=== PATIENT | male | born 1945 | race Caucasian/White ===

== ENCOUNTER 2022-04-07 09:58 | Outpatient (CLI) | payer MEDICARE, BC ==
[2022-04-07 11:07] LABS: #Basophils 0.1 10x3/uL (0.0-0.2); #Eosinphils 0.4 10x3/uL (0.0-0.5); #Monocytes 1.3 10x3/uL (0.0-1.1); #Neutrophils 12.9 10x3/uL (1.5-8.4); %Basophils 0.6 % (0.0-2.0); %Eosinophils 2.6 % (0.0-6.0); %Lymphocytes 7.4 % (18.0-47.0); %Monocytes 7.9 % (0.0-10.0); Hemoglobin 14.5 g/dL (13.5-17.5); Mean Corpuscular HGB CONC 34.1 g/dL (32.0-36.0); Mean Corpuscular Hemoglobin 32.7 pg (27.0-33.0); Mean Corpuscular Volume 95.7 fl (81.2-95.1); Mean Platelet Volume 10.6 fl (7.4-10.4); Platelet Count 550 10x3/uL (150-450); RBC Distribution Width 14.6 % (11.5-14.5); Red Blood Cell (RBC) Count 4.44 10x6/uL (4.32-5.72); White Blood Cell (WBC) Count 15.9 10x3/uL (3.5-10.5)
[2022-04-07 11:27] LABS: INR-International Normal Ratio 1.1; Prothrombin Time 11.7 sec (9.5-12.1)
[2022-04-07 11:37] LABS: Anion Gap 14 mmol/L (10-20); BUN (Urea Nitrogen) 23 mg/dL (8.4-25.7); Calc. Creatinine Clearance 0 mL/min (70-130); Calcium 9.9 mg/dL (7.8-10.44); Carbon Dioxide 25 mmol/L (23-31); Chloride 105 mmol/L (98-107); Estimated GFR 79; Glucose 111 mg/dL (83-110); Potassium 4.5 mmol/L (3.5-5.1); Sodium 139 mmol/L (136-145)
== END 2022-04-07 09:59 | disposition home or self-care (01) ==
LOC: LABBT 09:58
PROVIDERS: ATTEND Orthopaedic Surgery
DX: Z01.818 Encounter for other preprocedural examination (principal); M17.12 Unilateral primary osteoarthritis, left knee
CPT/HCPCS: 80048; 85025; 85610; 87081; 93005; 93010

== ENCOUNTER 2022-04-11 05:42 | Inpatient (IN) | payer MEDICARE, BC ==
[2022-04-11] MEDS ORDERED: Vancomycin 1 GM/200 ML (FROZEN) BAG ONE (06:20)
[2022-04-11] MEDS ORDERED: Sodium Chloride 0.9% 100 ML ONE ×3 (06:20→14:32)
[2022-04-11] MEDS ORDERED: Tranexamic Acid 1,000 MG/10 ML VIAL ONE (06:20)
[2022-04-11] MEDS ORDERED: Fentanyl 250 MCG/5 ML VIAL ONE (06:21)
[2022-04-11] MEDS ORDERED: Bupivacaine PF 0.5% 30 ML VIAL ONE ×2 (06:26→06:34)
[2022-04-11] MEDS ORDERED: Midazolam HCl 2 mg/2 ml Vial ONE (06:32)
[2022-04-11] MEDS ORDERED: Fentanyl 100 MCG/2 ML VIAL ONE ×4 (06:32→12:51)
[2022-04-11] MEDS ORDERED: EPINEPHrine 1 MG/ML AMP ONE (06:34)
[2022-04-11] MEDS ORDERED: Lidocaine 1% (PF) 30 ML VIAL ONE (06:34)
[2022-04-11] MEDS ORDERED: Promethazine HCl 25 MG/ML VIAL IM PRN ×3 (06:56→08:59)
[2022-04-11] MEDS ORDERED: diphenhydrAMINE 25 MG CAP PO PRN (06:56)
[2022-04-11] MEDS ORDERED: CEFAZOLIN 2 GM VIAL ONE ×2 (06:56→14:32)
[2022-04-11] MEDS ORDERED: Ondansetron PF 4 MG/2 ML Vial IVP PRN ×2 (06:56→07:30)
[2022-04-11] MEDS ORDERED: Zolpidem Tartrate 5 MG TAB PO PRN ×2 (06:56→07:30)
[2022-04-11] MEDS ORDERED: HYDROcodone/Acetaminophen 10/325 mg Tablet PO PRN ×2 (06:56)
[2022-04-11] MEDS ORDERED: Acetaminophen 325 MG TAB PO PRN (06:56)
[2022-04-11] MEDS ORDERED: Lidocaine 1% PF 5 ML VIAL ONE (07:18)
[2022-04-11] MEDS ORDERED: PROPOFOL 200 MG/20 ML VIAL ONE (07:18)
[2022-04-11] MEDS ORDERED: PHENYLEPHRINE-NS 100 MCG/ML 10 ML SYRINGE ONE (07:18)
[2022-04-11] MEDS ORDERED: Metoclopramide HCl 10 MG/2 ML VIAL ONE (07:18)
[2022-04-11] MEDS ORDERED: Bupivacaine HCl 0.5%/Epinephrine 1:200,000/PF 30 ml Vial ONE (07:18)
[2022-04-11] MEDS ORDERED: Ondansetron PF 4 MG/2 ML Vial ONE (07:18)
[2022-04-11] MEDS ORDERED: Fentanyl 100 MCG/2 ML VIAL SLOW IVP PRN (07:26)
[2022-04-11] MEDS ORDERED: traMADol HCl 50 MG TAB PO PRN (07:30)
[2022-04-11] MEDS ORDERED: Ropivacaine 0.2% 550 ML 550 ML NERVE BLCK SCH (07:30)
[2022-04-11 08:08] LABS: SARS-CoV-2 NAA Rapid Test Not Detected (NotDetected)
[2022-04-11] MEDS ORDERED: Meperidine HCl/PF 25 MG/ML VIAL SLOW IVP PRN (08:59)
[2022-04-11] MEDS ORDERED: Ondansetron HCl/PF 4 MG/2 ML Vial IVP PRN (08:59)
[2022-04-11] MEDS ORDERED: Promethazine HCl 25 MG/ML VIAL IVPB PRN (08:59)
[2022-04-11] MEDS ORDERED: PACU-Morphine 4MG/ML VIAL SLOW IVP PRN (08:59)
[2022-04-11] MEDS ORDERED: Non-Formulary Item 1 EACH (Multivitamin [Multivitamin] 1 EACH Tablet) PO SCH (09:00)
[2022-04-11] MEDS ORDERED: Morphine 4 MG/ML VIAL ONE (09:06)
[2022-04-11] MEDS ORDERED: Ketorolac Tromethamine 30 MG/ML VIAL IVP SCH (14:00)
[2022-04-11] MEDS: CEFAZOLIN 2 GM in Sodium Chloride 0.9% 100 ML IVPB SCH ×2 (14:34→23:24)
[2022-04-11] MEDS: Ketorolac Tromethamine 30 MG/ML VIAL IVP SCH ×3 (14:36→23:24)
[2022-04-11] MEDS ORDERED: Ketorolac Tromethamine 30 MG/ML VIAL ONE (14:38)
[2022-04-11 16:26] VITALS: BMI 29.2
[2022-04-11] MEDS: Sodium Chloride 0.9% 1,000 ML IV SCH ×2 (16:51→16:52)
[2022-04-11] MEDS: Amlodipine 5 MG TAB PO SCH (16:51)
[2022-04-11] MEDS: Aspirin 81 mg Enteric Coated Tablet PO SCH ×2 (16:51→20:50)
[2022-04-11] MEDS: Losartan 25 MG TAB PO SCH ×2 (16:52→20:50)
[2022-04-11] MEDS: Loratadine 10 MG TAB PO SCH (16:52)
[2022-04-11] MEDS: traMADol HCl 50 MG TAB PO PRN (20:50)
[2022-04-11] MEDS: Famotidine 20 MG TAB PO SCH (20:50)
[2022-04-12] MEDS: Sodium Chloride 0.9% 1,000 ML IV SCH ×3 (04:16→22:34)
[2022-04-12 06:38] LABS: Hemoglobin 12.4 g/dL (14.0-18.0); Mean Corpuscular HGB CONC 33.3 g/dL (32.0-36.0); Mean Corpuscular Hemoglobin 33.8 pg (27.0-31.0); Mean Platelet Volume 8.1 fL (7.4-10.4); Platelet Count 429 10x3/uL (130-400); RBC Distribution Width 13.6 % (11.5-14.5); Red Blood Cell (RBC) Count 3.67 mill/uL (4.70-6.10)
[2022-04-12] MEDS: Ketorolac Tromethamine 30 MG/ML VIAL IVP SCH ×3 (06:41→17:14)
[2022-04-12] MEDS: traMADol HCl 50 MG TAB PO PRN ×2 (06:50→21:25)
[2022-04-12] MEDS: Multivitamin W/ Minerals 1 TAB PO SCH (08:28)
[2022-04-12] MEDS: Losartan 25 MG TAB PO SCH ×2 (08:28→21:23)
[2022-04-12] MEDS: Senokot S 8.6-50 MG TAB PO SCH ×2 (08:28→21:23)
[2022-04-12] MEDS: Aspirin 81 mg Enteric Coated Tablet PO SCH ×2 (08:28→21:23)
[2022-04-12] MEDS: Ferrous Gluconate 324 MG TAB PO SCH ×2 (08:28→16:05)
[2022-04-12] MEDS: Loratadine 10 MG TAB PO SCH (08:29)
[2022-04-12] MEDS: Amlodipine 5 MG TAB PO SCH (08:29)
[2022-04-12] MEDS: HYDROcodone/Acetaminophen 10/325 mg Tablet PO PRN ×2 (08:29→16:05)
[2022-04-12] MEDS: Famotidine 20 MG TAB PO SCH (21:23)
[2022-04-13] MEDS: Ketorolac Tromethamine 30 MG/ML VIAL IVP SCH ×2 (00:14→05:10)
[2022-04-13] MEDS: traMADol HCl 50 MG TAB PO PRN ×2 (03:36→10:36)
[2022-04-13] MEDS ORDERED: Ipratropium/Albuterol 3 ML NEB NEB SCH (09:30)
[2022-04-13] MEDS: Losartan 25 MG TAB PO SCH ×2 (10:33→20:03)
[2022-04-13] MEDS: Multivitamin W/ Minerals 1 TAB PO SCH (10:34)
[2022-04-13] MEDS: Aspirin 81 mg Enteric Coated Tablet PO SCH ×2 (10:34→20:03)
[2022-04-13] MEDS: Senokot S 8.6-50 MG TAB PO SCH ×2 (10:34→20:03)
[2022-04-13] MEDS: Amlodipine 5 MG TAB PO SCH (10:34)
[2022-04-13] MEDS: Loratadine 10 MG TAB PO SCH (10:34)
[2022-04-13] MEDS: Ferrous Gluconate 324 MG TAB PO SCH ×2 (10:39→18:38)
[2022-04-13] MEDS: Sodium Chloride 0.9% 1,000 ML IV SCH ×2 (11:21→22:30)
[2022-04-13] MEDS ORDERED: Iopamidol-370 76% 500 ML 1 ML ONE (14:19)
[2022-04-13] MEDS: HYDROcodone/Acetaminophen 10/325 mg Tablet PO PRN (15:28)
[2022-04-13] MEDS ORDERED: Ipratropium/Albuterol 3 ML NEB NEB PRN (17:21)
[2022-04-13 18:06] LABS: #Basophils 0.1 thou/uL (0.0-0.2); #Eosinphils 0.4 thou/uL (0.0-0.7); #Lymphocytes 1.2 thou/uL (1.20-3.40); #Monocytes 2.1 thou/uL (0.11-0.59); #Neutrophils 15.9 thou/uL (1.40-6.50); %Basophils 0.3 % (0.0-1.0); %Eosinophils 2.2 % (0.0-10.0); %Lymphocytes 6.3 % (21.0-51.0); %Monocytes 10.4 % (0.0-10.0); %Neutrophils 80.8 % (42.0-75.0); Hemoglobin 11.7 g/dL (14.0-18.0); Mean Corpuscular HGB CONC 32.7 g/dL (32.0-36.0); Mean Corpuscular Hemoglobin 33.5 pg (27.0-31.0); Mean Platelet Volume 8.3 fL (7.4-10.4); Platelet Count 474 10x3/uL (130-400); RBC Distribution Width 13.9 % (11.5-14.5); Red Blood Cell (RBC) Count 3.49 mill/uL (4.70-6.10); White Blood Cell (WBC) Count 19.7 10x3/uL (4.8-10.8)
[2022-04-13 18:23] LABS: Anion Gap 15 mmol/L (10-20); BUN (Urea Nitrogen) 28 mg/dL (8.4-25.7); Calc. Creatinine Clearance 57 mL/min (70-130); Calcium 9.6 mg/dL (7.8-10.44); Carbon Dioxide 23 mmol/L (23-31); Chloride 103 mmol/L (98-107); Estimated GFR 64; Glucose 113 mg/dL (83-110); Potassium 4.5 mmol/L (3.5-5.1); Sodium 136 mmol/L (136-145)
[2022-04-13] MEDS: Famotidine 20 MG TAB PO SCH (20:04)
[2022-04-13] MEDS: cefTRIAXone\\ROCEPHIN 2 GM in Sodium Chloride 0.9% 100 ML IVPB SCH (21:35)
[2022-04-13] MEDS: Azithromycin 500 MG in Sodium Chloride 0.9% 250 ML 250 ML IVPB SCH (22:10)
[2022-04-14] MEDS: Sodium Chloride 0.9% 1,000 ML IV SCH ×2 (04:24→18:51)
[2022-04-14 08:35] LABS: #Eosinphils 0.3 thou/uL (0.0-0.7); #Lymphocytes 0.8 thou/uL (1.20-3.40); #Monocytes 1.6 thou/uL (0.11-0.59); #Neutrophils 13.4 thou/uL (1.40-6.50); %Basophils 0.3 % (0.0-1.0); %Eosinophils 2.1 % (0.0-10.0); %Lymphocytes 5.1 % (21.0-51.0); %Monocytes 9.6 % (0.0-10.0); %Neutrophils 82.9 % (42.0-75.0); Hemoglobin 11.2 g/dL (14.0-18.0); Mean Corpuscular HGB CONC 32.8 g/dL (32.0-36.0); Mean Platelet Volume 8.1 fL (7.4-10.4); Platelet Count 460 10x3/uL (130-400); RBC Distribution Width 13.8 % (11.5-14.5); Red Blood Cell (RBC) Count 3.41 mill/uL (4.70-6.10); White Blood Cell (WBC) Count 16.2 10x3/uL (4.8-10.8)
[2022-04-14 08:48] LABS: Anion Gap 13 mmol/L (10-20); BUN (Urea Nitrogen) 19 mg/dL (8.4-25.7); Calc. Creatinine Clearance 76 mL/min (70-130); Calcium 9.2 mg/dL (7.8-10.44); Carbon Dioxide 23 mmol/L (23-31); Chloride 105 mmol/L (98-107); Estimated GFR 88; Glucose 93 mg/dL (83-110); Potassium 3.8 mmol/L (3.5-5.1); Sodium 137 mmol/L (136-145)
[2022-04-14] MEDS: HYDROcodone/Acetaminophen 10/325 mg Tablet PO PRN (10:42)
[2022-04-14] MEDS: Aspirin 81 mg Enteric Coated Tablet PO SCH ×2 (10:43→20:46)
[2022-04-14] MEDS: Multivitamin W/ Minerals 1 TAB PO SCH (10:43)
[2022-04-14] MEDS: Losartan 25 MG TAB PO SCH ×2 (10:43→20:47)
[2022-04-14] MEDS: Loratadine 10 MG TAB PO SCH (10:43)
[2022-04-14] MEDS: Amlodipine 5 MG TAB PO SCH (10:43)
[2022-04-14] MEDS: Senokot S 8.6-50 MG TAB PO SCH ×2 (10:43→20:48)
[2022-04-14] MEDS: Ferrous Gluconate 324 MG TAB PO SCH ×2 (10:48→18:30)
[2022-04-14] MEDS: cefTRIAXone\\ROCEPHIN 2 GM in Sodium Chloride 0.9% 100 ML IVPB SCH (20:46)
[2022-04-14] MEDS: Famotidine 20 MG TAB PO SCH (20:46)
[2022-04-14] MEDS: Azithromycin 500 MG in Sodium Chloride 0.9% 250 ML 250 ML IVPB SCH (21:37)
[2022-04-15] MEDS: Sodium Chloride 0.9% 1,000 ML IV SCH ×3 (04:15→21:00)
[2022-04-15] MEDS: HYDROcodone/Acetaminophen 10/325 mg Tablet PO PRN ×3 (05:50→21:10)
[2022-04-15] MEDS: Losartan 25 MG TAB PO SCH ×2 (08:56→21:06)
[2022-04-15] MEDS: Amlodipine 5 MG TAB PO SCH (08:57)
[2022-04-15] MEDS: Aspirin 81 mg Enteric Coated Tablet PO SCH ×2 (08:57→21:06)
[2022-04-15] MEDS: Loratadine 10 MG TAB PO SCH (08:57)
[2022-04-15] MEDS: Senokot S 8.6-50 MG TAB PO SCH ×2 (08:57→21:06)
[2022-04-15] MEDS: Ferrous Gluconate 324 MG TAB PO SCH ×2 (08:57→16:39)
[2022-04-15] MEDS: Multivitamin W/ Minerals 1 TAB PO SCH (08:57)
[2022-04-15] MEDS: cefTRIAXone\\ROCEPHIN 2 GM in Sodium Chloride 0.9% 100 ML IVPB SCH (21:05)
[2022-04-15] MEDS: Famotidine 20 MG TAB PO SCH (21:10)
[2022-04-15] MEDS: Azithromycin 500 MG in Sodium Chloride 0.9% 250 ML 250 ML IVPB SCH (22:46)
[2022-04-16 06:43] LABS: #Eosinphils 0.6 thou/uL (0.0-0.7); #Lymphocytes 0.8 thou/uL (1.20-3.40); #Monocytes 1.5 thou/uL (0.11-0.59); #Neutrophils 9.1 thou/uL (1.40-6.50); %Basophils 0.3 % (0.0-1.0); %Eosinophils 5.1 % (0.0-10.0); %Lymphocytes 6.8 % (21.0-51.0); %Monocytes 12.5 % (0.0-10.0); %Neutrophils 75.3 % (42.0-75.0); Hemoglobin 10.7 g/dL (14.0-18.0); Mean Corpuscular Hemoglobin 33.3 pg (27.0-31.0); Mean Platelet Volume 8.4 fL (7.4-10.4); Platelet Count 486 10x3/uL (130-400); RBC Distribution Width 13.6 % (11.5-14.5); Red Blood Cell (RBC) Count 3.22 mill/uL (4.70-6.10); White Blood Cell (WBC) Count 12.1 10x3/uL (4.8-10.8)
[2022-04-16] MEDS: Sodium Chloride 0.9% 1,000 ML IV SCH ×2 (06:48→16:23)
[2022-04-16 07:10] LABS: ALT (SGPT) 31 U/L (8-55); AST (SGOT) 48 U/L (5-34); Albumin 3.7 g/dL (3.4-4.8); Alkaline Phosphatase 63 U/L (40-110); Anion Gap 13 mmol/L (10-20); BUN (Urea Nitrogen) 22 mg/dL (8.4-25.7); Bilirubin, Total 0.8 mg/dL (0.2-1.2); Calc. Creatinine Clearance 75 mL/min (70-130); Carbon Dioxide 25 mmol/L (23-31); Chloride 104 mmol/L (98-107); Estimated GFR 88; Globulin 2.7 g/dL (2.4-3.5); Glucose 92 mg/dL (83-110); Magnesium 2.2 mg/dL (1.6-2.6); Phosphorus 3.5 mg/dL (2.3-4.7); Protein, Total 6.4 g/dL (5.8-8.1); Sodium 138 mmol/L (136-145)
[2022-04-16] MEDS: HYDROcodone/Acetaminophen 10/325 mg Tablet PO PRN ×2 (08:13→20:03)
[2022-04-16] MEDS: Losartan 25 MG TAB PO SCH ×2 (08:14→20:02)
[2022-04-16] MEDS: Aspirin 81 mg Enteric Coated Tablet PO SCH ×2 (08:14→20:03)
[2022-04-16] MEDS: Senokot S 8.6-50 MG TAB PO SCH ×2 (08:14→20:03)
[2022-04-16] MEDS: Amlodipine 5 MG TAB PO SCH (08:14)
[2022-04-16] MEDS: Ferrous Gluconate 324 MG TAB PO SCH ×2 (08:15→16:26)
[2022-04-16] MEDS: Multivitamin W/ Minerals 1 TAB PO SCH (08:15)
[2022-04-16] MEDS: Loratadine 10 MG TAB PO SCH (08:15)
[2022-04-16] MEDS: cefTRIAXone\\ROCEPHIN 2 GM in Sodium Chloride 0.9% 100 ML IVPB SCH (20:00)
[2022-04-16] MEDS: Famotidine 20 MG TAB PO SCH (20:02)
[2022-04-16] MEDS: Azithromycin 500 MG in Sodium Chloride 0.9% 250 ML 250 ML IVPB SCH (21:53)
[2022-04-17] MEDS: HYDROcodone/Acetaminophen 10/325 mg Tablet PO PRN ×3 (00:05→13:52)
[2022-04-17] MEDS: Sodium Chloride 0.9% 1,000 ML IV SCH ×2 (03:00→09:24)
[2022-04-17 07:02] LABS: #Eosinphils 0.7 thou/uL (0.0-0.7); #Lymphocytes 0.8 thou/uL (1.20-3.40); #Monocytes 1.3 thou/uL (0.11-0.59); #Neutrophils 8.5 thou/uL (1.40-6.50); %Basophils 0.1 % (0.0-1.0); %Lymphocytes 7.1 % (21.0-51.0); %Monocytes 11.6 % (0.0-10.0); %Neutrophils 75.3 % (42.0-75.0); Hemoglobin 10.3 g/dL (14.0-18.0); Mean Corpuscular HGB CONC 34.8 g/dL (32.0-36.0); Mean Corpuscular Hemoglobin 35.2 pg (27.0-31.0); Mean Platelet Volume 8.2 fL (7.4-10.4); Platelet Count 488 10x3/uL (130-400); RBC Distribution Width 13.7 % (11.5-14.5); Red Blood Cell (RBC) Count 2.93 mill/uL (4.70-6.10); White Blood Cell (WBC) Count 11.3 10x3/uL (4.8-10.8)
[2022-04-17 07:22] LABS: Anion Gap 10 mmol/L (10-20); BUN (Urea Nitrogen) 18 mg/dL (8.4-25.7); Calc. Creatinine Clearance 80 mL/min (70-130); Calcium 8.5 mg/dL (7.8-10.44); Carbon Dioxide 26 mmol/L (23-31); Chloride 106 mmol/L (98-107); Estimated GFR 90; Glucose 89 mg/dL (83-110); Sodium 138 mmol/L (136-145)
[2022-04-17] MEDS: Amlodipine 5 MG TAB PO SCH (08:03)
[2022-04-17] MEDS: Aspirin 81 mg Enteric Coated Tablet PO SCH (08:03)
[2022-04-17] MEDS: Losartan 25 MG TAB PO SCH (08:04)
[2022-04-17] MEDS: Senokot S 8.6-50 MG TAB PO SCH (08:04)
[2022-04-17] MEDS: Loratadine 10 MG TAB PO SCH (08:04)
[2022-04-17] MEDS: Ferrous Gluconate 324 MG TAB PO SCH (08:04)
[2022-04-17] MEDS: Multivitamin W/ Minerals 1 TAB PO SCH (08:05)
[2022-04-17 12:22] VITALS: BP 117/63; TEMP 98.4
[2022-04-17] MEDS ORDERED: Apixaban 5 MG TAB PO SCH (21:00)
[2022-04-24] MEDS ORDERED: Apixaban 5 MG TAB PO SCH (21:00)
== END 2022-04-17 15:38 | disposition home health service (06) | DRG 981 ==
LOC: SDC 05:42 → SJJU 15:37 → OBSVTOIN 04-13 15:11
PROVIDERS: ADMIT Orthopaedic Surgery; ATTEND Internal Medicine
PROC: 0SRD0J9 Replacement of Left Knee Joint with Synthetic Substitute, Cemented, Open Approach (ICD-10-PCS; principal; 2022-04-11)
DX: J95.89 Other postprocedural complications and disorders of respiratory system, not elsewhere classified (principal); I26.99 Other pulmonary embolism without acute cor pulmonale; J18.9 Pneumonia, unspecified organism; J96.01 Acute respiratory failure with hypoxia; T81.718A Complication of other artery following a procedure, not elsewhere classified, initial encounter; M17.12 Unilateral primary osteoarthritis, left knee; I10 Essential (primary) hypertension; M17.0 Bilateral primary osteoarthritis of knee; J30.2 Other seasonal allergic rhinitis; C61 Malignant neoplasm of prostate; I08.3 Combined rheumatic disorders of mitral, aortic and tricuspid valves; Y83.8 Other surgical procedures as the cause of abnormal reaction of the patient, or of later complication, without mention of misadventure at the time of the procedure; Z88.2 Allergy status to sulfonamides; Z79.899 Other long term (current) drug therapy
CPT/HCPCS: 36415; 71275; 80048; 80053; 83735; 84100; 85025; 85027; 87040; 93306; 94640; 96374; 96375; 96376; A4306; C1713; C1776; G0378; J0171; J0456; J0696; J1650; J1885; J2001; J2250; J2270; J2405; J2704; J2765; J2795; J3010; J3370-JW; J3490; J7050; J7620; Q9967; S0020; U0002

== ENCOUNTER 2022-04-26 15:44 | Outpatient (CLI) | payer MEDICARE, BC ==
[2022-04-26 16:59] LABS: #Basophils 0.1 10x3/uL (0.0-0.2); #Eosinphils 0.5 10x3/uL (0.0-0.5); #Monocytes 1.4 10x3/uL (0.0-1.1); #Neutrophils 13.9 10x3/uL (1.5-8.4); %Basophils 0.8 % (0.0-2.0); %Lymphocytes 7.9 % (18.0-47.0); %Monocytes 8.1 % (0.0-10.0); %Neutrophils 78.6 % (40.0-75.0); Hemoglobin 10.1 g/dL (13.5-17.5); Mean Corpuscular HGB CONC 32.4 g/dL (32.0-36.0); Mean Corpuscular Hemoglobin 32.2 pg (27.0-33.0); Mean Corpuscular Volume 99.4 fl (81.2-95.1); Mean Platelet Volume 10.3 fl (7.4-10.4); Platelet Count 758 10x3/uL (150-450); RBC Distribution Width 16.2 % (11.5-14.5); Red Blood Cell (RBC) Count 3.14 10x6/uL (4.32-5.72); White Blood Cell (WBC) Count 17.7 10x3/uL (3.5-10.5)
[2022-04-26 17:00] LABS: MDiff Complete? YES
[2022-04-26 17:19] LABS: Band 3 % (5-11); Eosinophils 3 % (0-10); Lymphocytes 8 % (21-51); Monocytes 9 % (0-10); Neutrophil 75 % (42-75)
[2022-04-26 17:20] LABS: Anion Gap 14 mmol/L (10-20); BUN (Urea Nitrogen) 20 mg/dL (8.4-25.7); Calc. Creatinine Clearance 0 mL/min (70-130); Calcium 9.2 mg/dL (7.8-10.44); Carbon Dioxide 24 mmol/L (23-31); Chloride 106 mmol/L (98-107); Estimated GFR 77; Glucose 98 mg/dL (83-110); Platelet Morphology Comment Appears Increased; Potassium 5.8 mmol/L (3.5-5.1); Sodium 138 mmol/L (136-145)
[2022-04-26 17:21] LABS: Anisocytosis SLIGHT = 6-15 cells (100X) (0-5/hpf); Dohle Bodies SLIGHT; Toxic Granulation SLIGHT; Vacuoles SLIGHT
[2022-04-26 17:22] LABS: Hypochromia SLIGHT = 6-15 cells (100X) (0-5/hpf); Macrocytosis SLIGHT = 6-15 cells (100X) (0-5/hpf); Microcytosis SLIGHT = 6-15 cells (100X) (0-5/hpf); Polychromasia SLIGHT = 2-3 cells (100X) (0-2/hpf); Stomatocytes SLIGHT = 2-5 cells (100X) (0-1/hpf)
== END 2022-04-26 15:45 | disposition home or self-care (01) ==
LOC: LABBT 15:44
PROVIDERS: ATTEND Orthopaedic Surgery
DX: Z01.812 Encounter for preprocedural laboratory examination (principal); S81.002A Unspecified open wound, left knee, initial encounter
CPT/HCPCS: 80048; 85025

== ENCOUNTER → 2022-05-09 | Day surgery (SDC) | payer MEDICARE, BC | END | disposition home or self-care (01) | LOC: SPEC 09:15 | PROVIDERS: ATTEND Family Medicine | PROC: 02HV33Z Insertion of Infusion Device into Superior Vena Cava, Percutaneous Approach (ICD-10-PCS; principal; 2022-05-09) | DX: M00.9 Pyogenic arthritis, unspecified (principal); Z88.2 Allergy status to sulfonamides | CPT/HCPCS: 36569; C1751 ==

== ENCOUNTER 2023-11-02 16:08 | Outpatient (CLI) | payer MEDICARE | END 2023-11-02 16:09 | disposition home or self-care (01) | LOC: BICRAD 16:08 | PROVIDERS: ATTEND Nurse Practitioner Family | DX: S91.302A Unspecified open wound, left foot, initial encounter (principal) ==

== ENCOUNTER 2024-03-20 15:52 | Emergency (ER) | payer MEDICARE ==
[2024-03-20 16:28] LABS: #Basophils 0.07 10x3/uL (0.0-0.2); %Basophils 0.7 % (0.0-1.0); %Eosinophils 0.5 % (0.0-10.0); %Lymphocytes 12.2 % (21.0-51.0); %Neutrophils 80.8 % (42.0-75.0); Hematocrit 36.4 % (42.0-52.0); Hemoglobin 12.5 g/dL (14.0-18.0); Mean Corpuscular HGB CONC 34.3 g/dL (32.0-36.0); Mean Corpuscular Hemoglobin 39.7 pg (27.0-31.0); Mean Corpuscular Volume 115.6 fL (78.0-98.0); Mean Platelet Volume 9.3 fL (7.4-10.4); Platelet Count 548 10x3/uL (130-400); RBC Distribution Width 14.8 % (11.5-14.5); Red Blood Cell (RBC) Count 3.15 mill/uL (4.70-6.10)
[2024-03-20 16:52] LABS: ALT (SGPT) 11 U/L (8-55); AST (SGOT) 21 U/L (5-34); Alkaline Phosphatase 96 U/L (40-110); Anion Gap 14 mmol/L (10-20); BUN (Urea Nitrogen) 17 mg/dL (8.4-25.7); Bilirubin, Total 0.4 mg/dL (0.2-1.2); Calc. Creatinine Clearance 0 mL/min (70-130); Calcium 9.8 mg/dL (7.8-10.44); Carbon Dioxide 27 mmol/L (23-31); Chloride 104 mmol/L (98-107); Estimated GFR 87; Globulin 3.3 g/dL (2.4-3.5); Glucose 150 mg/dL (83-110); Potassium 4.7 mmol/L (3.5-5.1); Protein, Total 7.3 g/dL (5.8-8.1); Sodium 140 mmol/L (136-145)
[2024-03-20 16:57] LABS: Anisocytosis SLIGHT = 6-15 cells HPF (0-5); Macrocytosis SLIGHT = 6-15 cells HPF (0-5); Platelet Adequacy Comment Platelets Increased; Polychromasia SLIGHT = 2-3 cells HPF (0-2)
== END 2024-03-20 21:03 | disposition home or self-care (01) ==
LOC: ERS 15:52
DX: L08.9 Local infection of the skin and subcutaneous tissue, unspecified (principal); I10 Essential (primary) hypertension
CPT/HCPCS: 36415; 80053; 83605; 85025; 87070; 87205; 99284

== ENCOUNTER 2024-03-24 17:06 | Inpatient (IN) | payer MEDICARE ==
[2024-03-24 18:53] LABS: %Basophils 0.7 % (0.0-1.0); %Eosinophils 0.6 % (0.0-10.0); %Monocytes 5.9 % (0.0-10.0); %Neutrophils 82.1 % (42.0-75.0); Hematocrit 37.4 % (42.0-52.0); Hemoglobin 12.5 g/dL (14.0-18.0); Mean Corpuscular HGB CONC 33.4 g/dL (32.0-36.0); Mean Corpuscular Hemoglobin 39.2 pg (27.0-31.0); Mean Corpuscular Volume 117.2 fL (78.0-98.0); Mean Platelet Volume 9.4 fL (7.4-10.4); Platelet Count 536 10x3/uL (130-400); RBC Distribution Width 14.5 % (11.5-14.5); Red Blood Cell (RBC) Count 3.19 mill/uL (4.70-6.10)
[2024-03-24 19:03] LABS: ALT (SGPT) 10 U/L (8-55); AST (SGOT) 18 U/L (5-34); Albumin 4.3 g/dL (3.4-4.8); Alkaline Phosphatase 96 U/L (40-110); Anion Gap 13 mmol/L (10-20); BUN (Urea Nitrogen) 23 mg/dL (8.4-25.7); Bilirubin, Total 0.4 mg/dL (0.2-1.2); CRP,High Sensitivity (Inhouse) 3.48 mg/dL (< or = 0.5); Calc. Creatinine Clearance 0 mL/min (70-130); Calcium 9.7 mg/dL (7.8-10.44); Carbon Dioxide 24 mmol/L (23-31); Chloride 104 mmol/L (98-107); Estimated GFR 82; Globulin 3.4 g/dL (2.4-3.5); Glucose 105 mg/dL (83-110); Potassium 4.3 mmol/L (3.5-5.1); Protein, Total 7.7 g/dL (5.8-8.1); Sodium 137 mmol/L (136-145)
[2024-03-24 19:18] LABS: Anisocytosis SLIGHT = 6-15 cells HPF (0-5); Macrocytosis MODERATE=16-30 cells HPF (0-5); Platelet Adequacy Comment Platelets Increased; Polychromasia SLIGHT = 2-3 cells HPF (0-2)
[2024-03-24] MEDS ORDERED: Ondansetron ODT 4 MG TAB PO PRN (21:00)
[2024-03-24] MEDS ORDERED: Senokot S 8.6-50 MG TAB PO PRN (21:00)
[2024-03-24] MEDS ORDERED: Sodium Chloride 0.9% 100 ML ONE (21:46)
[2024-03-24] MEDS ORDERED: Cefepime 2 GM VIAL ONE (21:46)
[2024-03-24 23:22] VITALS: BMI 21.1
[2024-03-25] MEDS: Acetaminophen 325 MG TAB PO PRN (00:44)
[2024-03-25] MEDS: Piperacillin/Tazobactam 3.375 GM in Sodium Chloride 0.9% 100 ML IVPB SCH ×2 (01:00→08:27)
[2024-03-25 06:18] LABS: #Basophils 0.07 10x3/uL (0.0-0.2); %Basophils 0.7 % (0.0-1.0); %Eosinophils 0.8 % (0.0-10.0); %Lymphocytes 7.9 % (21.0-51.0); %Monocytes 5.6 % (0.0-10.0); %Neutrophils 84.3 % (42.0-75.0); Hematocrit 32.8 % (42.0-52.0); Hemoglobin 11.2 g/dL (14.0-18.0); Mean Corpuscular HGB CONC 34.1 g/dL (32.0-36.0); Mean Corpuscular Hemoglobin 39.2 pg (27.0-31.0); Mean Corpuscular Volume 114.7 fL (78.0-98.0); Mean Platelet Volume 9.4 fL (7.4-10.4); Platelet Count 435 10x3/uL (130-400); Red Blood Cell (RBC) Count 2.86 mill/uL (4.70-6.10)
[2024-03-25 06:22] LABS: Hemoglobin A1c 4.8 % (4.0-6.0)
[2024-03-25 06:42] LABS: ALT (SGPT) 10 U/L (8-55); AST (SGOT) 16 U/L (5-34); Albumin 3.4 g/dL (3.4-4.8); Alkaline Phosphatase 77 U/L (40-110); Anion Gap 13 mmol/L (10-20); BUN (Urea Nitrogen) 21 mg/dL (8.4-25.7); Bilirubin, Total 0.7 mg/dL (0.2-1.2); Calc. Creatinine Clearance 62 mL/min (70-130); Carbon Dioxide 22 mmol/L (23-31); Chloride 107 mmol/L (98-107); Cholesterol 107 mg/dl (< 200 Desired); Estimated GFR 84; Globulin 2.6 g/dL (2.4-3.5); Glucose 90 mg/dL (83-110); HDL Cholesterol 36 mg/dL (>60 Neg Risk); LDL Cholesterol, Calculated 59 mg/dL; Potassium 3.8 mmol/L (3.5-5.1); Sodium 138 mmol/L (136-145); Triglycerides 62 mg/dL (Less than 150)
[2024-03-25] MEDS ORDERED: Piperacillin/Tazobactam 3.375 GM in Sodium Chloride 0.9% 100 ML IVPB SCH (08:00)
[2024-03-25] MEDS: Multivitamin W/ Minerals 1 TAB PO SCH (08:26)
[2024-03-25] MEDS: Apixaban 5 MG TAB PO SCH (08:26)
[2024-03-25] MEDS: Amlodipine 5 MG TAB PO SCH (08:26)
[2024-03-25] MEDS: Losartan 25 MG TAB PO SCH (08:26)
[2024-03-25] MEDS: Docusate 100 MG CAP PO SCH (08:26)
[2024-03-25] MEDS: Hydroxyurea 500 MG CAP PO SCH (08:26)
[2024-03-25] MEDS: Saccharomyces boulardii 250 MG CAP PO SCH (08:27)
[2024-03-25] MEDS ORDERED: Losartan 25 MG TAB PO SCH (09:00)
[2024-03-25] MEDS ORDERED: Amlodipine 5 MG TAB PO SCH (09:00)
[2024-03-25] MEDS ORDERED: Cefepime 1 GM in Sodium Chloride 0.9% 100 ML IVPB SCH (10:00)
[2024-03-25] MEDS: Morphine 2 MG/ML VIAL SLOW IVP PRN (11:32)
[2024-03-25] MEDS: Calcium Carbonate 500 MG ChewTAB PO PRN (16:15)
[2024-03-25] MEDS: Vancomycin HCl 125 MG Capsule PO SCH (20:10)
[2024-03-26 05:51] LABS: Hematocrit 32.3 % (42.0-52.0); Mean Corpuscular HGB CONC 34.1 g/dL (32.0-36.0); Mean Corpuscular Hemoglobin 39.3 pg (27.0-31.0); Mean Corpuscular Volume 115.4 fL (78.0-98.0); Mean Platelet Volume 9.3 fL (7.4-10.4); Platelet Count 415 10x3/uL (130-400)
[2024-03-26 06:46] LABS: Anion Gap 12 mmol/L (10-20); BUN (Urea Nitrogen) 19 mg/dL (8.4-25.7); Calc. Creatinine Clearance 63 mL/min (70-130); Calcium 8.8 mg/dL (7.8-10.44); Carbon Dioxide 23 mmol/L (23-31); Chloride 108 mmol/L (98-107); Estimated GFR 85; Glucose 89 mg/dL (83-110); Potassium 3.9 mmol/L (3.5-5.1); Sodium 139 mmol/L (136-145)
[2024-03-26] MEDS: Ondansetron PF 4 MG/2 ML Vial IVP PRN (12:20)
[2024-03-26] MEDS: Cefepime 2 GM in Sodium Chloride 0.9% 100 ML IVPB SCH (12:20)
[2024-03-26 15:18] VITALS: BMI 21.1
[2024-03-27 05:36] LABS: %Eosinophils 1.4 % (0.0-10.0); %Monocytes 7.9 % (0.0-10.0); %Neutrophils 76.1 % (42.0-75.0); Anion Gap 11 mmol/L (10-20); BUN (Urea Nitrogen) 25 mg/dL (8.4-25.7); Calc. Creatinine Clearance 63 mL/min (70-130); Carbon Dioxide 24 mmol/L (23-31); Chloride 109 mmol/L (98-107); Estimated GFR 85; Glucose 88 mg/dL (83-110); Hematocrit 32.8 % (42.0-52.0); Hemoglobin 11.2 g/dL (14.0-18.0); Mean Corpuscular HGB CONC 34.1 g/dL (32.0-36.0); Mean Corpuscular Hemoglobin 39.4 pg (27.0-31.0); Mean Corpuscular Volume 115.5 fL (78.0-98.0); Mean Platelet Volume 9.5 fL (7.4-10.4); Platelet Count 414 10x3/uL (130-400); Potassium 4.6 mmol/L (3.5-5.1); RBC Distribution Width 13.8 % (11.5-14.5); Red Blood Cell (RBC) Count 2.84 mill/uL (4.70-6.10); Sodium 139 mmol/L (136-145)
[2024-03-27 05:37] LABS: CRP,High Sensitivity (Inhouse) 2.25 mg/dL (< or = 0.5)
[2024-03-28 23:14] VITALS: TEMP 97.8
[2024-03-29 08:57] VITALS: BP 123/65
== END 2024-03-29 13:24 | disposition home health service (06) | DRG 593 ==
LOC: ERS 17:06 → SUATTDRO 17:06 → T4-A 20:59
PROVIDERS: ADMIT Internal Medicine; ATTEND Internal Medicine
DX: L89.623 Pressure ulcer of left heel, stage 3 (principal); L03.116 Cellulitis of left lower limb; I10 Essential (primary) hypertension; Z96.652 Presence of left artificial knee joint; B96.5 Pseudomonas (aeruginosa) (mallei) (pseudomallei) as the cause of diseases classified elsewhere; D63.8 Anemia in other chronic diseases classified elsewhere; M24.575 Contracture, left foot; Z99.3 Dependence on wheelchair; Z79.01 Long term (current) use of anticoagulants; Z86.711 Personal history of pulmonary embolism; Z85.46 Personal history of malignant neoplasm of prostate; Z79.899 Other long term (current) drug therapy
CPT/HCPCS: 36415; 80048; 80053; 80061; 83036; 83605; 84145; 85025; 85027; 86141; 87040; 96374; 97139; J0692; J2272; J2405; J2543

== ENCOUNTER 2025-01-02 15:31 | Outpatient (CLI) | payer MEDICARE | END 2025-01-02 15:32 | disposition home or self-care (01) | LOC: BICRAD 15:31 → RAD 15:32 | PROVIDERS: ATTEND Nurse Practitioner Family | DX: D72.828 Other elevated white blood cell count (principal) | CPT/HCPCS: 36415; 71046; 81001; 85025 ==